=== PATIENT | female | born 1965 | race Caucasian/White ===

== ENCOUNTER → 2017-02-28 | Day surgery (SDC) | payer OTHER ==
[~2017-02-28] MED LIST: BUPIVACAINE HCL PF 0.5% 10 ML VIAL ONE; LACTATED RINGER'S 1000 ML INJ 1,000 ML ONE; MEPERIDINE HCL 50 MG/ML VIAL ONE; MIDAZOLAM HCL 2 MG/2 ML VIAL ONE; ONDANSETRON HCL 4 MG/2 ML VIAL IV PUSH ONE; OXYC1SOL5 PO; PROPOFOL 200 MG/20 ML AMP IV ONE; ceFAZolin 2 GM PREMIX 50 ML ONE; oxyCODONE/ACETAMINOPHEN 5 MG/325 MG TAB ONE
--- NOTE | 2017-03-01 23:19 | MP ---
cc: VINOD PICHARDO DPM DATE OF SURGERY 02/28/17 DATE OF 1965 PREOPERATIVE DIAGNOSES 1. Right foot first metatarsal hallux abductovalgus 2. Right first metatarsophalangeal joint arthritis. 3. Right second digit MTP chronic dislocation 4. Right second digit hammertoe 5. Right third digit hammertoe PROCEDURE 1. Right first metatarsophalangeal joint fusion. 2. Right second metatarsal head resection. 3. Right second IPJ fusion with K-wire fixation. 4. Right third metatarsal head resection. 5. Right third IPJ fusion with K-wire fixation. ESTIMATED BLOOD LOSS 50 mL TOURNIQUET TIME 120 minutes at 250 mmHg of the right ankle COMPLICATIONS None. SPECIMENS SENT Right second and third metatarsal head for evaluation. No cultures were needed. ANESTHESIA General with 10 mL of 0.5 Marcaine plain in high ankle block format preoperatively and then 10 mL of 0.5 Marcaine plain male block around the first, second and third rays INDICATIONS This patient is a 52-year-old female with a very significant right forefoot with hallux abductovalgus, hypermobile first ray and first metatarsophalangeal joint arthritis with a second dorsally dislocated digit chronically on the second with large cystic metatarsal head of the second and possibly the third with a varus and dorsal subluxation of the third proximal phalanx at the metatarsophalangeal joint. The patient is requesting surgical intervention of the problem at this time due to pain and loss of function. The patient understands the procedure performed today. We thoroughly went over preop options for her which included metatarsal head resections, Gayle osteotomies, hammertoes, lapidis and metatarsophalangeal joint fusion. She and I both discussed it and we will try and get by with a first metatarsophalangeal joint fusion as well as a Gayle of the second and third versus second and third metatarsal head resections as well as pinning of the second and third digits with interphalangeal joint fusions of the proximal phalanx both the second and third digits. We will hold off on the fourth and fifth. They are not causing her any pain. We will see how the foot functions afterwards. The patient understands the procedure to be performed today as well as potential risks and complications which involved nonunion, possible amputation, possible infection, possible need for further surgery. She would like to proceed. PROCEDURE IN DETAIL The patient was brought to the operating room and placed on the operating table in supine position. Pneumatic ankle tourniquet was placed about the right ankle. Foot was scrubbed prepped and draped in the usual sterile fashion. Ten mL of 0.5 Marcaine plain was injected by high ankle block. First attention was directed once preop x-rays were taken to show a large IM angle in between the first and second metatarsal heads. A linear incision along the first metatarsophalangeal joint medial to the extensor halluces longus was made. Care was used to avoid all vital structures. Once to the level of the first metatarsal phalangeal joint, sharp dissection was taken down and going outside the capsule and in the interspace the adductor tendons were released. It did allow loosening of the metatarsophalangeal joint and the digit. A 15 sagittal saw was used to remove the cartilage on both the metatarsal head and proximal base. Curettes and K-wires were used to remove any remaining cartilage. Rongeur was used to smooth out the spurring. Sagittal saw was used to remove the medial eminence. K-wire was used from the proximal phalanx into the metatarsal for temporary fixation. C-arm was used to reveal that the IM angle had at that point closed down and there was not a need for a lapidis bunionectomy, yet the fusion was to continue. With the foot loaded and found to be in a good position, a K-wire was thrown and a 3-0 cannulated compression screw was thrown across the joint. It was found to have good compression. Next, a six-hole Arthrex straight plate with mild valgus was used to place over the bone and four locking screws, two distal, two proximal were placed into the plate. The joint was found to be well compressed and good fixation. The bone was found to be soft under the cartilage that was minimally remaining around the first metatarsophalangeal joint at the plate with the screw fixation held the toe in a good position. Next, attention was directed in a mild curvilinear incision at the second digit. Once the extensor digitorum longus and brevis were identified, they were severely laterally and the second digit was severely dorsally dislocated. There was excessive what appeared to be panus formation and scar tissue with questionable identifiable joint capsule which was very thickened and scarred. Rongeur and 15 blade was used to clear off some of the scarring and abnormal hypertrophic tissue. With the capsule freed, the toe was distally distracted and about 1.5 cm was measured from the base of the proximal phalanx to the distal portion of the metatarsal head. It was at that point confirmed that a metatarsal head resection was needed. I could not get the toe reduced properly using a Gayle approach and observing with McGlamry of the plantar surfaces the metatarsal head was identified and it was extremely large, very abnormal shape and size with irregularities. No cartilage found and excessive pannus formation appearing around the joint. A sagittal saw was used to remove the metatarsal head at the surgical neck. C-arm was used to reveal good position. The toe was now able to relax more and rongeur was used to smooth off any sharp edges. The base of the proximal phalanx was also found to be very abnormal, but the rongeur was used to remove any spurring and the cartilage was left on the proximal base. Next, the proximal interphalangeal joint was exposed and a sagittal saw was used to remove the cartilage on the proximal head and middle base. The area was copiously flushed and a K-wire was used to hold the pin in position. The foot was loaded and the second and first had a good spacing and a good alignment. Next, attention was directed and a mildly curvilinear incision made over the metatarsophalangeal joint and down the third digit. Again, excessive scarring and hypertrophic tissue was found around the joint that was debrided away. The toe capsule at the metatarsophalangeal joint had to be removed to even get the toe partially reduced. McGlamry was used to free up the plantar structures and initial appearance of the head under C-arm and clinically revealed possibility of doing a Gayle osteotomy. Gayle osteotomy wafer was taken and the metatarsal head was shortened approximately 2-1/2 mm. A 13, a 15 and a 17 with clamping and properly measuring the drill for the metatarsal head did not find good purchase. After further evaluation of the head, it was also found to be a very unusual shape, looking more like a condyle than a metatarsal head. It had very much irregularities. No cartilage found around the head and it was elected to perform a metatarsal head resection at that point. It was slightly shorter than was initially anticipated, but with the attempt of the Gayle and then the discovery of the very large metatarsal head, it was found the best option was metatarsal head resection. The second and third metatarsal heads very unusual. Therefore, both sent to pathology for further evaluation. Next, attention was directed to the proximal interphalangeal joint in which cartilage was removed on both the head and base and K-wire was used to fixate the toe into the shaft of the metatarsal. C-arm was used to reveal good positions of the toes. At this point, there was a mild positional issue with the fourth toe wanting to crawl onto the third. The third toe was adjusted to have some space, but we were not instructed to do the fourth and fifth at this time. we may go back later and evaluate that, but the second, third as well as the first toe is found to be in good position. There is slight concern of full function of those second and third digits due to the metatarsal head resection, but positionally it was better, also plantarly around the second and third the fat pad was severely distributed anteriorly from her prior foot position. Nothing was done for that. Vicryl was used to reapproximate the tendons on the second and third, Vicryl was used to close the capsule around the first metatarsal phalangeal joint, Vicryl was used to close subcutaneous tissue and nylon was used to close the three incisions. 0.5 Marcaine plain was injected around the three rays, Adaptic, 4x4, cast padding and a posterior splint was used. The toes pinked up after the K-wires were thrown, Jose balls were placed. The toes did have a good pink color. There was good blood flow. The patient handled anesthesia well. LIANE Burrows /3:48 PM /10:48 PM [facility]
== END | disposition home or self-care (01) ==
LOC: ESDC 11:36
PROVIDERS: ATTEND Podiatrist Foot & Ankle Surgery
DX: M20.11 Hallux valgus (acquired), right foot (principal); M19.071 Primary osteoarthritis, right ankle and foot; M24.477 Recurrent dislocation, right toe(s); M20.41 Other hammer toe(s) (acquired), right foot
CPT/HCPCS: 01480; 28112; 28285; 28750; 73620; 76000; 88304; 88311; C1713; J0690; J2175; J2250; J2405; J3010; J7120; 88305